=== PATIENT | female | born 1935 | race Two or more races ===

== ENCOUNTER 2017-09-08 13:55 | Outpatient (CLI) | payer OTHER ==
[~2017-09-08 13:55] MED LIST: CRESTOR5 MG; PERCOCET 5/3251 TAB PO; SYNTHROID50 MCG
== END 2017-09-08 14:02 | disposition home or self-care (01) ==
LOC: MRI 13:55
DX: M54.5 Low back pain (principal)
CPT/HCPCS: 72148

== ENCOUNTER → 2018-04-02 | Outpatient (CLI) | payer OTHER | END | disposition home or self-care (01) | LOC: NUCLEAR 08:59 | DX: R94.6 Abnormal results of thyroid function studies (principal); E06.9 Thyroiditis, unspecified; E05.80 Other thyrotoxicosis without thyrotoxic crisis or storm | CPT/HCPCS: 78012; A9531 ==

== ENCOUNTER → 2018-04-03 | Outpatient (CLI) | payer OTHER | END | disposition home or self-care (01) | LOC: NUCLEAR 09:00 | DX: E05.80 Other thyrotoxicosis without thyrotoxic crisis or storm (principal); R94.6 Abnormal results of thyroid function studies; E06.9 Thyroiditis, unspecified | CPT/HCPCS: 78013; A9512 ==

== ENCOUNTER 2018-04-20 10:14 | Outpatient (CLI) | payer OTHER | END 2018-04-20 12:36 | disposition home or self-care (01) | LOC: NUCLEAR 10:14 | DX: I82.403 Acute embolism and thrombosis of unspecified deep veins of lower extremity, bilateral (principal) ==

== ENCOUNTER 2018-05-17 13:09 | Outpatient (CLI) | payer OTHER | END 2018-05-17 13:15 | disposition home or self-care (01) | LOC: RAD 501 13:09 | DX: J45.41 Moderate persistent asthma with (acute) exacerbation (principal) ==

== ENCOUNTER 2018-06-18 13:09 | Outpatient (CLI) | payer OTHER | END 2018-06-18 13:15 | disposition home or self-care (01) | LOC: SONOGRAMA 13:09 | DX: E04.1 Nontoxic single thyroid nodule (principal); E06.9 Thyroiditis, unspecified ==

== ENCOUNTER 2018-08-17 15:46 | Outpatient (CLI) | payer OTHER | END 2018-08-17 16:08 | disposition home or self-care (01) | LOC: LAB 15:46 | DX: N20.0 Calculus of kidney (principal) ==

== ENCOUNTER 2018-08-21 09:09 | Outpatient (CLI) | payer OTHER | END 2018-08-21 15:57 | disposition home or self-care (01) | LOC: TOM 09:09 | DX: K05.00 Acute gingivitis, plaque induced (principal); K05.01 Acute gingivitis, non-plaque induced; K05.20 Aggressive periodontitis, unspecified; K09.0 Developmental odontogenic cysts | CPT/HCPCS: 70487; Q9965 ==

== ENCOUNTER 2019-05-15 11:54 | Outpatient (CLI) | payer OTHER | END 2019-05-15 11:55 | disposition home or self-care (01) | LOC: RAD 11:54 | DX: M84.375A Stress fracture, left foot, initial encounter for fracture (principal) ==

== ENCOUNTER → 2019-06-12 | Outpatient (CLI) | payer OTHER | END | disposition home or self-care (01) | LOC: RAD 14:14 | DX: M20.41 Other hammer toe(s) (acquired), right foot (principal); M20.42 Other hammer toe(s) (acquired), left foot ==

== ENCOUNTER 2019-10-17 05:45 | Day surgery (SDC) | payer OTHER | END 2019-10-17 10:45 | disposition home or self-care (01) | LOC: AMB-ENDOS 05:45 → ADM 13:45 → AMB-ENDOS 13:45 | DX: K62.89 Other specified diseases of anus and rectum (principal); Z12.11 Encounter for screening for malignant neoplasm of colon ==

== ENCOUNTER → 2020-05-27 | Outpatient (CLI) | payer OTHER | END | disposition home or self-care (01) | LOC: MRI 12:13 | DX: Z13.850 Encounter for screening for traumatic brain injury (principal); H83.2X1 Labyrinthine dysfunction, right ear | CPT/HCPCS: 70553; A9575 ==

== ENCOUNTER 2020-07-30 09:42 | Emergency (ER) | payer OTHER ==
[~2020-07-30] VITALS: Ht 162.6 cm; Wt 59.9 kg
[2020-07-30] MEDS ORDERED: JANUVIA100 MG PO (09:57)
== END 2020-07-30 14:38 | disposition home or self-care (01) ==
LOC: ER 09:42
DX: M26.69 Other specified disorders of temporomandibular joint (principal)
CPT/HCPCS: 70551

== ENCOUNTER 2020-08-27 09:55 | Outpatient (CLI) | payer OTHER ==
[~2020-08-27 09:55] MED LIST changes: +JANUVIA100 MG PO
== END 2020-08-27 17:36 | disposition home or self-care (01) ==
LOC: OFIC 805 09:55
PROVIDERS: ATTEND Otolaryngology
DX: M26.69 Other specified disorders of temporomandibular joint (principal)

== ENCOUNTER 2020-09-17 09:00 | Outpatient (CLI) | payer OTHER | END 2020-09-17 09:08 | disposition HB | LOC: MRI 09:00 | DX: M51.17 Intervertebral disc disorders with radiculopathy, lumbosacral region (principal); M51.06 Intervertebral disc disorders with myelopathy, lumbar region | CPT/HCPCS: 72158; A9575 ==

== ENCOUNTER 2021-01-08 13:28 | Outpatient (CLI) | payer OTHER | END 2021-01-08 14:01 | disposition home or self-care (01) | LOC: OFIC 805 13:28 | PROVIDERS: ATTEND Otolaryngology | DX: R42 Dizziness and giddiness (principal); H90.3 Sensorineural hearing loss, bilateral ==

== ENCOUNTER 2021-03-03 14:32 | Outpatient (CLI) | payer OTHER | END 2021-03-03 14:38 | disposition home or self-care (01) | LOC: SONOGRAMA 14:32 | DX: R10.2 Pelvic and perineal pain (principal) ==

== ENCOUNTER 2021-03-03 14:54 | Outpatient (CLI) | payer OTHER | END 2021-03-03 14:55 | disposition home or self-care (01) | LOC: NUCLEAR 14:54 | PROVIDERS: ATTEND Internal Medicine | DX: M81.0 Age-related osteoporosis without current pathological fracture (principal); Z13.83 Encounter for screening for respiratory disorder NEC ==

== ENCOUNTER 2021-05-07 08:00 | Outpatient (CLI) | payer OTHER ==
[2021-06-09] MEDS ORDERED: SYNTHROID88 MCG PO (11:40)
[2021-06-09] MEDS ORDERED: JANUVIA PO (11:40)
[2021-06-09] MEDS ORDERED: PREDNISONE PO (11:42)
== END 2021-05-07 08:15 | disposition home or self-care (01) ==
LOC: PPH VACUNA 08:00
PROVIDERS: ATTEND Emergency Medicine Pediatric Emergency Medicine
DX: Z23 Encounter for immunization (principal)

== ENCOUNTER → 2021-06-07 08:19 | Outpatient (CLI) | payer OTHER ==
[~2021-06-07 08:19] MED LIST changes: +JANUVIA PO; +NABUMETONE750 MG PO; +PERCOCET 5-3251 EACH PO; +PREDNISONE PO; +SYNTHROID88 MCG PO
== END | disposition home or self-care (01) ==
LOC: MRI 08:15
PROVIDERS: ATTEND Internal Medicine
DX: M25.511 Pain in right shoulder (principal)
CPT/HCPCS: 73221

== ENCOUNTER 2021-06-07 14:32 | Outpatient (CLI) | payer OTHER ==
[~2021-06-07 14:32] MED LIST changes: -JANUVIA PO; -NABUMETONE750 MG PO; -PERCOCET 5-3251 EACH PO; -PREDNISONE PO; -SYNTHROID88 MCG PO
[2021-06-09] MEDS ORDERED: JANUVIA PO (11:40)
[2021-06-09] MEDS ORDERED: SYNTHROID88 MCG PO (11:40)
[2021-06-09] MEDS ORDERED: PREDNISONE PO (11:42)
== END 2021-06-07 15:00 | disposition home or self-care (01) ==
LOC: LAB 14:32
PROVIDERS: ATTEND Orthopaedic Surgery
DX: N39.0 Urinary tract infection, site not specified (principal); D68.8 Other specified coagulation defects; R07.89 Other chest pain; Z20.822 Contact with and (suspected) exposure to COVID-19

== ENCOUNTER 2021-06-15 05:30 | Day surgery (SDC) | payer OTHER ==
[~2021-06-15 05:30] MED LIST changes: +JANUVIA PO; +PREDNISONE PO; +SYNTHROID88 MCG PO
[2021-06-15] MEDS ORDERED: PERCOCET 5-3251 EACH PO (11:16)
[2021-06-15] MEDS ORDERED: NABUMETONE750 MG PO (11:17)
== END 2021-06-15 15:31 | disposition home or self-care (01) ==
LOC: CIR.AMB 05:30
PROVIDERS: ATTEND Orthopaedic Surgery
DX: M75.121 Complete rotator cuff tear or rupture of right shoulder, not specified as traumatic (principal); Z20.822 Contact with and (suspected) exposure to COVID-19

== ENCOUNTER 2021-07-09 10:05 | Outpatient (CLI) | payer OTHER ==
[~2021-07-09 10:05] MED LIST changes: +NABUMETONE750 MG PO; +PERCOCET 5-3251 EACH PO
== END 2021-07-09 10:06 | disposition home or self-care (01) ==
LOC: NUCLEAR 10:05
PROVIDERS: ATTEND Internal Medicine
DX: I73.9 Peripheral vascular disease, unspecified (principal); I82.403 Acute embolism and thrombosis of unspecified deep veins of lower extremity, bilateral

== ENCOUNTER 2021-09-08 10:00 | Outpatient (CLI) | payer OTHER | END 2021-09-08 10:04 | disposition home or self-care (01) | LOC: SONOGRAMA 10:00 | PROVIDERS: ATTEND Orthopaedic Surgery | DX: M75.121 Complete rotator cuff tear or rupture of right shoulder, not specified as traumatic (principal); M25.511 Pain in right shoulder ==

== ENCOUNTER 2022-11-12 16:20 | Emergency (ER) | payer OTHER ==
[~2022-11-12] VITALS: Ht 157.5 cm; Wt 59.0 kg
[2022-11-12] MEDS ORDERED: JANUMET 50-5001 EACH (16:31)
[2022-11-12] MEDS ORDERED: SYNTHROID75 MCG (16:31)
[2022-11-12] MEDS ORDERED: MILLIPRED5 MG (16:32)
== END 2022-11-12 20:38 | disposition home or self-care (01) ==
LOC: ER 16:20
DX: T17.228A Food in pharynx causing other injury, initial encounter (principal); E11.9 Type 2 diabetes mellitus without complications; Z79.84 Long term (current) use of oral hypoglycemic drugs; Z88.0 Allergy status to penicillin; Z88.8 Allergy status to other drugs, medicaments and biological substances

== ENCOUNTER 2022-11-22 09:05 | Outpatient (CLI) | payer OTHER ==
[~2022-11-22 09:05] MED LIST changes: +JANUMET 50-5001 EACH; +MILLIPRED5 MG; +SYNTHROID75 MCG
== END 2022-11-22 09:14 | disposition home or self-care (01) ==
LOC: MRI 09:05
PROVIDERS: ATTEND Internal Medicine
DX: M54.59 Other low back pain (principal); M54.17 Radiculopathy, lumbosacral region
CPT/HCPCS: 72148

== ENCOUNTER 2023-01-27 10:23 | Outpatient (CLI) | payer OTHER | END 2023-01-27 10:26 | disposition home or self-care (01) | LOC: RAD 10:23 | PROVIDERS: ATTEND Internal Medicine | DX: M79.642 Pain in left hand (principal); M25.532 Pain in left wrist; S62.92XA Unspecified fracture of left hand, initial encounter for closed fracture ==

== ENCOUNTER 2023-03-06 13:05 | Outpatient (CLI) | payer OTHER | END 2023-03-06 13:10 | disposition home or self-care (01) | LOC: NUCLEAR 13:05 | PROVIDERS: ATTEND Internal Medicine | DX: M81.0 Age-related osteoporosis without current pathological fracture (principal) ==

== ENCOUNTER 2023-03-10 11:59 | Outpatient (CLI) | payer OTHER | END 2023-03-10 12:09 | disposition home or self-care (01) | LOC: MRI 11:59 | PROVIDERS: ATTEND Internal Medicine | DX: S69.92XA Unspecified injury of left wrist, hand and finger(s), initial encounter (principal); M79.642 Pain in left hand | CPT/HCPCS: 73218 ==

== ENCOUNTER 2023-06-12 08:04 | Outpatient (CLI) | payer OTHER | END 2023-06-12 08:05 | disposition home or self-care (01) | LOC: NUCLEAR 08:04 | PROVIDERS: ATTEND Internal Medicine | DX: I73.9 Peripheral vascular disease, unspecified (principal); I82.409 Acute embolism and thrombosis of unspecified deep veins of unspecified lower extremity; I87.2 Venous insufficiency (chronic) (peripheral) ==

== ENCOUNTER 2023-06-13 08:30 | Outpatient (CLI) | payer OTHER | END 2023-06-13 08:31 | disposition home or self-care (01) | LOC: NUCLEAR 08:30 | PROVIDERS: ATTEND Internal Medicine | DX: I73.9 Peripheral vascular disease, unspecified (principal); I82.409 Acute embolism and thrombosis of unspecified deep veins of unspecified lower extremity; I87.2 Venous insufficiency (chronic) (peripheral) ==

== ENCOUNTER 2023-07-12 13:06 | Outpatient (CLI) | payer OTHER | END 2023-07-12 13:11 | disposition home or self-care (01) | LOC: RAD 13:06 | PROVIDERS: ATTEND Internal Medicine | DX: M54.59 Other low back pain (principal); M62.830 Muscle spasm of back ==

== ENCOUNTER 2023-07-21 11:24 | Outpatient (CLI) | payer OTHER | END 2023-07-21 11:29 | disposition home or self-care (01) | LOC: RAD 11:24 | PROVIDERS: ATTEND Internal Medicine | DX: K04.7 Periapical abscess without sinus (principal); K12.2 Cellulitis and abscess of mouth; J01.90 Acute sinusitis, unspecified; J01.80 Other acute sinusitis ==

== ENCOUNTER 2023-07-24 12:00 | Outpatient (CLI) | payer OTHER | END 2023-07-24 12:07 | disposition home or self-care (01) | LOC: TOM 12:00 | PROVIDERS: ATTEND Internal Medicine | DX: J01.00 Acute maxillary sinusitis, unspecified (principal); K12.2 Cellulitis and abscess of mouth ==

== ENCOUNTER 2023-08-01 15:05 | Outpatient (CLI) | payer OTHER | END 2023-08-01 15:07 | disposition home or self-care (01) | LOC: SONOGRAMA 15:05 | PROVIDERS: ATTEND Otolaryngology | DX: R22.1 Localized swelling, mass and lump, neck (principal) ==

== ENCOUNTER 2024-03-18 13:56 | Outpatient (CLI) | payer OTHER | END 2024-03-18 14:00 | disposition home or self-care (01) | LOC: RAD 13:56 | DX: M54.50 Low back pain, unspecified (principal); M25.561 Pain in right knee; M17.11 Unilateral primary osteoarthritis, right knee ==

== ENCOUNTER 2024-04-12 10:58 | Outpatient (CLI) | payer OTHER | END 2024-04-12 10:59 | disposition home or self-care (01) | LOC: NUCLEAR 10:58 | PROVIDERS: ATTEND Orthopaedic Surgery | DX: M79.605 Pain in left leg (principal); M79.674 Pain in right toe(s) ==

== ENCOUNTER 2024-07-21 13:16 | Emergency (ER) | payer OTHER ==
[~2024-07-21] VITALS: Ht 157.5 cm; Wt 59.0 kg
[2024-07-21] MEDS ORDERED: 0.9 % SODIUM CHLORIDE 1,000 ML IV STA (13:52)
[2024-07-21 15:16] LABS: HEMATOCRIT 37.3 % (36.0-45.00); HEMOGLOBIN 12.2 g/dL (12.0-15.00); MEAN CELL VOLUME 87.2 fL (80.00-100.00); MEAN CORPUSCULAR HEMOGLOBIN 28.5 pg (27.00-32.0); MEAN CORPUSCULAR HGB CONC 32.7 g/dl (32.0-36.0); PLATELET COUNT 233 K/uL (150-450); RED BLOOD COUNT 4.27 M/uL (4.00-6.00); RED CELL DISTRIBUTION WIDTH 13.7 % (11.5-14.5)
[2024-07-21 15:47] LABS: BILIRUBIN TOTAL 0.64 mg/dL (0.3-1.2); CALCIUM 8.7 mg/dL (8.5-10.1); CREATININE SERUM 1.45 mg/dL (0.55-1.02); GFR 34.08; POTASSIUM 4.8 mEq/L (3.5-5.1)
[2024-07-21] MEDS ORDERED: CIPROFLOXACIN IN 5 % DEXTROSE 400 MG/200 ML PIGGYBAG IV ONE (16:15)
[2024-07-21 16:18] LABS: URINE APPEARANCE Clear; URINE BILIRRUBIN Negative (NEGATIVE); URINE BLOOD Negative; URINE COLOR Yellow; URINE KETONE Negative (NEGATIVE); URINE LEUKOCYTE Negative; URINE NITRATE Negative; URINE PROTEIN Trace (NEGATIVE); URINE UROBILINOGEN 0.2 E.U./dl
[2024-07-21 16:29] LABS: URINE EPITHELIAL CELLS 3.1 uL (0.0-38.8); URINE RBC 9.2 uL (0.0-20.8); URINE WBC 10.4 uL (0.0-23.2)
[2024-07-21 16:49] LABS: URINE CAST 0.58 uL (0.0-1.40); URINE GLUCOSE >=1000 MG/DL (NEGATIVE)
[2024-07-21 18:41] LABS: BILIRUBIN,CONJUGATED 0.1 mg/dL (0.0-0.2); BILIRUBIN,UNCONJUGATED 0.54 mg/dL (0.0-0.6)
== END 2024-07-21 18:50 | disposition home or self-care (01) ==
LOC: ER 13:18
PROVIDERS: General Practice
DX: R19.7 Diarrhea, unspecified (principal); I10 Essential (primary) hypertension; E03.8 Other specified hypothyroidism; E11.9 Type 2 diabetes mellitus without complications; Z79.84 Long term (current) use of oral hypoglycemic drugs; Z88.0 Allergy status to penicillin; Z88.3 Allergy status to other anti-infective agents
CPT/HCPCS: 36415; 74176; 96365; 96366; 99284; J0744; J7030

== ENCOUNTER 2024-11-13 13:05 | Outpatient (CLI) | payer OTHER | END 2024-11-13 13:08 | disposition home or self-care (01) | LOC: TOM 13:05 | PROVIDERS: ATTEND Internal Medicine | DX: R42 Dizziness and giddiness (principal); G45.9 Transient cerebral ischemic attack, unspecified ==

== ENCOUNTER 2024-12-23 08:29 | Outpatient (CLI) | payer OTHER | END 2024-12-23 08:30 | disposition home or self-care (01) | LOC: NUCLEAR 08:29 | PROVIDERS: ATTEND Internal Medicine Endocrinology, Diabetes & Metabolism | DX: I73.9 Peripheral vascular disease, unspecified (principal) ==

== ENCOUNTER 2025-05-07 10:22 | Outpatient (CLI) | payer OTHER ==
[~2025-05-07 10:22] MED LIST changes: +CYCLOBENZAPRINE5 MG PO
== END 2025-05-07 10:27 | disposition home or self-care (01) ==
LOC: RAD 10:22
PROVIDERS: ATTEND Internal Medicine Rheumatology
DX: M47.812 Spondylosis without myelopathy or radiculopathy, cervical region (principal); M47.817 Spondylosis without myelopathy or radiculopathy, lumbosacral region; M16.11 Unilateral primary osteoarthritis, right hip; M16.12 Unilateral primary osteoarthritis, left hip